=== PATIENT | female | born 1935 | race Asian ===

== ENCOUNTER → 2016-08-12 | Outpatient (CLI) | payer OTHER ==
[~2016-08-12] MED LIST: ADV250 IH; CLOP75 PO; FAMO20TA PO; LOVA40TA2 PO; METF500T4 PO; METO-325 PO; WARF2 PO
== END | disposition home or self-care (01) ==
LOC: RADPV 08:29
PROVIDERS: ATTEND Internal Medicine Cardiovascular Disease
DX: I50.1 Left ventricular failure, unspecified (principal); I08.3 Combined rheumatic disorders of mitral, aortic and tricuspid valves
CPT/HCPCS: 93306